=== PATIENT | female | born 1960 | race Caucasian/White ===

== ENCOUNTER 2017-06-24 10:31 | Inpatient (IN) ==
[2017-06-24] MEDS ORDERED: Adenosine 90 MG/30 ML MLS IV ONE (11:02)
[2017-06-24] MEDS ORDERED: *HR* Heparin 10,000 UNIT/10 ML VIAL ONE ×2 (14:12→14:48)
[2017-06-24] MEDS ORDERED: 0.9 % Sodium Chloride 1,000 ML ONE ×2 (14:12→14:47)
[2017-06-24] MEDS ORDERED: Verapamil 5 MG/2 ML VIAL ONE (14:12)
[2017-06-24] MEDS ORDERED: Nitroglycerin 1,000 MCG/10 ML VIAL IV ONE ×2 (14:12→14:48)
--- NOTE | 2017-06-24 14:23 | Cardiology History & Physical ---
<IsmaelJonh - Last Filed: 06/24/17 14:17> Date of Encounter: 06/24/17 Time of Encounter: 13:30 Assessment and Plan (1) NSTEMI (non-ST elevated myocardial infarction) Current Visit: Yes Status: Acute Patient presents with worsening chest pain of 3 weeks duration. Chest pain present at rest; unrelated to exertion. Daily smoker, family hx of RI, HTN and HLD. Troponin was elevated on presentation to ER; last troponin level was 2.51. EKG demonstrates the presence of inferior myocardial infarction, indeterminate age on posterior extension. Plan: -Cardiac catheterization. -Procedure was explained to patient; risks and benefits were discussed The assessment and plan as outlined above was discussed with the patient and/or family members who expressed understanding and agreement. All questions were answered. History of Present Illness Chief complaint: Chest pain HPI: Ms. Sen is a 56 year old female with a PMH of HTN and HLD who presented to the hospital as a transfer with the chief complaint of chest pain x 3 weeks. Describes her chest pain as substernal, pressure-like, 7/10 at its worst, radiating to the left side of her neck and arm and into her back. Pain unrelated to exertion; first started at rest. Denies ever having this pain before. Pain usually started at rest, and subsided within 5-10 minutes. Pain has gotten progressively worse over the last 48 hours. States that when she arrived to the emergency department, her pain had completely subsided. She does not notice pain exacerbated or relieved by anything in particular. States that she remains physically active, and the physical exertion does not affect her chest pain. Patient reports that she has been diagnosed with hypertension and hyperlipidemia, but that she dislikes taking medications. Admits to being a daily smoker. Reports a family history of heart disease, with her mother dying of heart attack in her 60s. Currently denies having any chest pain. Denies nausea, vomiting, fever, chills, diaphoresis, shortness of breath, or dizziness. EKG demonstrates the presence of inferior myocardial infarction of indeterminate age with posterior extension. Patient's vital signs are currently within normal limits. Upon initial presentation to the emergency department, patient was found to have an elevated troponin level. Last troponin drawn was 2.51. Patient will need cardiac catheterization. Past Med Surg Social Fam HX - Past Medical History Medical history: hyperlipidemia, hypertension Psychiatric history: no psych history - Social History Smoking Status: Current every day smoker Packs per day: 1.5 Smokeless Tobacco Status: No Alcohol use: none Drug use: none Medications and Allergies No Known Home Drugs 06/24/17 [History] 3 Allergy/AdvReac Type Severity Reaction Status Date / Time acetaminophen [From Percocet] AdvReac Nausea Verified 06/24/17 13:20 Oxycodone [From Percocet] AdvReac Nausea Verified 06/24/17 13:20 All Systems Review: A 10-system review of systems was performed and is negative for pertinent findings except as documented above in the HPI. - Constitutional Constitutional: snoring, no chills, no fever(s), no headache(s) - Cardiovascular Cardiovascular: no chest pain at rest, no chest pain with exertion, no diaphoresis, no dyspnea at rest, no dyspnea on exertion, no irregular heart rhythm, no radiating jaw, neck or arm pain - Neurological Neurological: no syncope Physical Examination Vital Signs, Last 4 Hours Temp Pulse Resp BP Pulse Ox 06/24/17 12:40 97.7 F 77 16 126/88 97 General: Conversant, No Apparent Distress HEENT: Atraumatic, Normocephaly, Mucus Membranes Moist Neck: No JVD, Normal carotid pulses Cardiac: Reg Rate and Rhythm, Normal S1 and S2, No Murmur Lungs: Normal Breath Sounds, No Wheeze, Rales, Rhonchi Neuro: Alert and responsive, No focal deficits noted Skin: No rashes noted on visualized skin Musculoskeletal: No Chest Wall Tenderness Extremities: No Clubbing, No Cyanosis, No Edema, Normal Pulses <Jeffry Hammonds - Last Filed: 06/24/17 14:47> Date of Encounter: 06/24/17 - Attending Attestation I examined this patient and my medical decision-making was reviewed with the Resident Physician. I agree with the documented findings, disposition and treatment plan as described except to the extent set forth below. IMP: 1. NSTEMI: Chest pain on and off since 06/09/2017, with most severe episode occurring last pm, evaluated in ER at outlying facility, found to have elevated cardiac enzemes, recommended transfer, medical tx, pt refused, reconsidered when discusses with pt this AM, agreed to transfer for C/possible. She has been pain free since admission. Long conversation with pt and family at bedside , recommend starting medical tx and urgent LHC/poss, risk and benefits discussed , pt agrees to proceed. Discussed at length need to take prescription drugs for at least a year, specifically dual antiplatelet tx, pt reports she is willing and able to follow directions with medications. She understands there is no dietary supplements or natural foods which will provide the same benefits , and stopping prescribed medications would increase her risk of repeat RI and . Will add Coreg 3.125 bid and lisinopril 2.5 mg q d, monitor heart rate and blood pressure response. 2. Tobacco abuse: discussed smoking cessation, pt will consider 3. Hyperlipidemia: known elevated cholesterol, has refused medical tx in the past but would be willing to take meds in light of new clinical situation of acute coronary syndrome. History of Present Illness HPI: Ms. Sen is a 56 year old female All Systems Review: A 10-system review of systems was performed and is negative for pertinent findings except as documented above in the HPI. Physical Examination Vital Signs, Last 4 Hours Temp Pulse Resp BP Pulse Ox 06/24/17 12:40 97.7 F 77 16 126/88 97
[2017-06-24] MEDS ORDERED: *HR* FentaNYL (PF) 100 MCG/2 ML VIAL ONE ×2 (14:49→16:09)
[2017-06-24] MEDS ORDERED: *HR* Midazolam HCl 2 MG/2 ML VIAL ONE ×4 (14:49→16:44)
--- NOTE | 2017-06-24 14:54 | Pre-Sedation Evaluation ---
Pre-sedation evaluation - Pre-sedation checklist Date of procedure: 06/24/17 Procedure: [facility] Recent Vitals: Last Vital Signs Temp 97.7 F 06/24/17 12:40 Pulse 77 06/24/17 12:40 Resp 16 06/24/17 12:40 BP 126/88 06/24/17 12:40 Pulse Ox 97 06/24/17 12:40 H&P (including ROS) documented in medical record: Yes Previous reaction to sedatives/anesthetics: No Dietary Status: NPO 6 hours prior to procedure Dentition: No loose teeth or bridges ASA Classification *see protocol: CLASS II-Mild systemic disease Plan of Care: Pt appropriate candidate for procedure/moderate/conscious sedation , Risks/benefits of procedure/sedation discussed w/ patient/family
[2017-06-24] MEDS ORDERED: Tirofiban 12.5 MG/250ML 12.5 MG/250 ML BAG ONE (15:18)
[2017-06-24] MEDS ORDERED: Ondansetron 4 MG/2 ML VIAL ONE (16:27)
[2017-06-24] MEDS ORDERED: *HR* Adenosine 6 MG/2 ML VIAL IVP ONE (16:40)
[2017-06-24] MEDS ORDERED: *HR* Morphine 2 MG/ML SYRINGE ONE ×2 (16:42→16:44)
[2017-06-24] MEDS ORDERED: *HR* Ticagrelor 90 MG TABLET ONE (16:53)
--- NOTE | 2017-06-24 17:07 | Invasive Diagnostic Lab Proc ---
Name: Cecily Sen Date of Study: 06/24/2017 Date: 1960 Ht: 67.0in Medical Record#: [id number] Age: 56 Wt: 198.42lb Gender: Female BSA: 2.02 Order #: [id number] BMI: 31.08 Physicians Procedure Physician: Vikas Corcoran MD, [facility] Referring MD: Referring MD: Staff Name Position Time In Sites, [facility] RT (R) Monitor 02:53 PM Patty Wong RT (R) Scrub 02:53 PM Nolvia Steel RN Hemodialysis Technician 02:53 PM Juan Luis Kaminski RN Monitor 03:13 PM Indications Indication Non-Stemi Procedures Performed Procedure L HRT ARTERY/VENTRICLE ANGIO IV Doppler BLD Flow 1st Vessel PRQ CARD DARRELL STENT W/ANGIO 1 VSL PRQ CARD DARRELL STENT W/ANGIO 1 VSL PRQ CARD DARRELL STENT W/ANGIO 1 VSL Pre-Procedure Checklist Informed consent is complete signed and on chart. H&P is on chart. ID band is on and ID verified with patient. Patient NPO for procedure The procedure was described for the patient and questions were answered. ECG is on chart. Rhythm: NSR Plan of Care Patient will tolerate the procedure without complications. Adequate level of comfort will be maintained. Hemodynamics will remain stable Patient will recover from procedure without complications. Respiratory function will be maintained. Cardiac rhythm will remain stable. Patient temperature will be maintained. Patient and/or family have verbalized understanding of the procedure. Patient Education Chief Complaint/Reason for Test: Cardiac Cath Developmental Category: Adult (18-64 years) Developmentally Appropriate for Age: Yes Learning Barriers: None Education Needs: Procedure Education Method: Verbal Information Taught: Cardiac Cath Educational Evaluation: Able to repeat information Intravenous Access Time IV Size Location DC'd Fluid/Drip Rate Units RN 22g 1" Patent On Arrival Rt Antecubital 0.9NaCl 25 ml/hr Nolvia Steel RN Allergies Oxycodone acetaminophen Vital Signs Time BP (mmHg) HR (bpm) O2 Sat. RR (bpm) LOC 02:54 PM / % 5 = Fully awake and oriented or at pre-proc level 03:09 PM / % 5 = Fully awake and oriented or at pre-proc level 03:24 PM / % 4 = Oriented but drowsy 03:41 PM / % 4 = Oriented but drowsy 04:11 PM / % 5 = Fully awake and oriented or at pre-proc level 04:26 PM / % 4 = Oriented but drowsy 02:53 PM 120 / 76 76 99 % 21 02:58 PM 134 / 79 75 98 % 16 03:03 PM 125 / 74 71 100 % 15 03:08 PM 125 / 79 67 100 % 16 03:13 PM 128 / 71 71 99 % 12 03:18 PM 107 / 65 81 94 % 34 03:23 PM 101 / 59 82 94 % 17 03:28 PM 111 / 62 81 95 % 22 03:33 PM 95 / 52 80 96 % 26 03:34 PM 109 / 60 79 95 % 15 03:38 PM 111 / 62 81 96 % 17 03:43 PM 109 / 65 82 97 % 18 03:48 PM 111 / 69 81 95 % 22 04:43 PM 130 / 93 77 98 % 15 04:48 PM 124 / 81 83 90 % 16 03:53 PM 115 / 66 93 100 % 16 03:58 PM 114 / 80 83 93 % 18 04:04 PM 131 / 89 85 98 % 13 04:08 PM 140 / 90 86 98 % 12 04:13 PM 138 / 89 82 97 % 18 04:18 PM 134 / 88 85 97 % 12 04:23 PM 125 / 85 83 97 % 14 04:28 PM 139 / 91 74 99 % 21 04:33 PM 152 / 95 86 99 % 15 04:38 PM 129 / 84 77 100 % 27 Procedural Medications Time Medication Dose Units Method Given By 02:54 PM Oxygen 2 L/min nasal cannula Nolvia Steel RN 02:55 PM Versed 2 mg Intravenous Nolvia Steel RN 02:55 PM Fentanyl 50 mcg Intravenous Nolvia Steel RN 03:08 PM Versed 2 mg Intravenous Nolvia Steel RN 03:08 PM Fentanyl 50 mcg Intravenous Nolvia Steel RN 03:12 PM Lidocaine 2% 0.5 ml Subcutaneous Vikas Corcoran MD, FACC 03:16 PM Heparin 4000 units Nitroglycerin 200 mcg Verapamil 2.5 mg Intraarterial Vikas Corcoran MD, FACC 03:27 PM Nitroglycerin 100 mcg Intracoronary Vikas Corcoran MD 03:30 PM Heparin 2000 units Intravenous Nolvia Steel RN 03:49 PM Adenosine 756 ml/hr Intravenous Nolvia Steel RN 04:01 PM Aggrastat Bolus: 46 ml Intravenous Nolvia Steel RN 04:02 PM Aggrastat 12.5mg/250ml 16.5 ml Intravenous Nolvia Steel RN 04:10 PM Fentanyl 25 mcg Intravenous Nolvia Steel RN 04:10 PM Heparin 1000 units Intravenous Nolvia Steel RN 04:25 PM Versed 1 mg Intravenous Nolvia Steel RN 04:25 PM Fentanyl 25 mcg Intravenous Nolvia Steel RN 04:28 PM Zofran 4 mg Intravenous Nolvia Steel RN 04:36 PM Fentanyl 50 mcg Intravenous Nolvia Steel RN 04:41 PM Morphine 4 mg Intravenous Nolvia Steel RN 04:41 PM Versed 2 mg Intravenous Nolvia Steel RN 04:43 PM Adenosine 200 mcg Intracoronary Vikas Corcoran MD, FACC 04:45 PM Benadryl 50 mg Intravenous Nolvia Steel RN 04:46 PM Brilinta 180 mg Orally Nolvia Steel RN ASA Classification: CLASS II- Mild systemic disease (i.e. well-controlled diabetes, hypertension, asthma, cigarette smoking) Scooby Score Preprocedure Postprocedure Activity 2- Moves 4 extremities sustained head lift Activity 2- Moves 4 extremities sustained head lift Circulation 2- SBP +/= 20 points of pre-anesthetic level Circulation 2- SBP +/= 20 points of pre-anesthetic level Consciousness 2- Awake and alert oriented x 3 Consciousness 2- Awake and alert oriented x 3 O2 Saturation 2- Able to maintain O2 satruation of 92% on room air O2 Saturation 2- Able to maintain O2 satruation of 92% on room air Respiratory 2- Able to deep breathe and cough well Respiratory 2- Able to deep breathe and cough well Total Score 10 Total Score 10 Contrast Agent: Isovue Diagnostic Contrast: 246 ml Total Contrast: 246 ml Fluoro Dose: 1702 mGy Activated Clotting Time Time Seconds to Clot 03:30 PM 207 Procedure Log Time Note Enter By 02:47 PM 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 tsites 02:52 PM Recorded ECG: HR=70 Condition=Condition 1 02:52 PM CathStat 02:53 PM Vitals capture started with the following parameters, Patient=Adult, Interval=5 min, Initial Dwjlmqdl=829 mmHg, Deflation Rate=5 mmHg, Cuff placed on Left Arm 02:53 PM Leandra Cason RT (R) Position: Monitor Time in: :ites 02: PM Patty Wong RT (R) Position: Scrub Time in: :: PM Nolvia Steel RN Position: Hemodialysis Technician Time in: :ites 02:53 PM Patient charges- Angio tray pack, Navilyst 3mm J, Pulse Oximetry and ACIST tubing and transducer ts: PM Physician arrived : tsites : PM Sign in performed according to hospital policy. ts:53 PM Procedure start 14: tsites : PM HR=76 bpm, WYJZ=623/76 mmhg, SpO2=99.0 %, Resp=21 B/min 02: PM Case Delayed No tsites :54 PM Hair removed from procedure site in holding area using clippers. Right wrist and right groin prepped with Chloraprep by Patty Wong (R), safety strap applied then patient was draped. Skin intact. tsites 02:54 PM Time: 14:54 Oxygen on at 2 L/min per nasal cannula by Nolvia Steel RN ites 02:54 PM Time: 14:54 Patient comfortable and pain free: Yes ts:54 PM Time: 14:54LOC: 5 = Fully awake and oriented or at pre-proc level tsites 02:54 PM Clinical Presentation: Non-STEMI tsites 02:55 PM Time: 14:55 Versed 2 mg Intravenous Given by Nolvia Steel RN tsites 02:55 PM Time: 14:55 Fentanyl 50 mcg Intravenous Given by Nolvia Steel RN tsites 02:58 PM HR=75 bpm, MFXX=923/79 mmhg, SpO2=98.0 %, Resp=16 B/min 03:03 PM HR=71 bpm, FXBB=556/74 mmhg, OxX2=790.0 %, Resp=15 B/min, Comment=nsr 03:08 PM Time: 15:08 Versed 2 mg Intravenous Given by Nolvia Steel RN tsites 03:08 PM Time: 15:08 Fentanyl 50 mcg Intravenous [facility] 03:08 PM Pressure channel 1 zeroed. 03:08 PM HR=67 bpm, DWJI=893/79 mmhg, DcA2=325.0 %, Resp=16 B/min, Comment=nsr 03:09 PM Time: 14:54 Patient comfortable and pain free: Yes tsites 03:11 PM Time out performed according to hospital policy tsites 03:12 PM Time: 15:12 0.5 ml Lidocaine 2% to right radial Subcutaneous Given by Vikas Corcoran MD, [facility] tsites 03:13 PM Juan Luis Kaminski RN Position: Monitor Time in: 15:13 tsites 03:13 PM ASA Class CLASS II- Mild systemic disease (i.e. well-controlled diabetes, hypertension, asthma, cigarette smoking) tsites 03:13 PM HR=71 bpm, UOYT=779/71 mmhg, SpO2=99.0 %, Resp=12 B/min 03:13 PM Leandra Sites monitor tsites 03:15 PM Access obtained by percutaneous puncture. 5Fr 10cm Terumo Glidesheath sheath placed in right Radial artery. [id number] tsites 03:16 PM Time: 15:16 Patient given 4,000 units Heparin, 200 mcg Nitroglycerin, and 2.5 mg Verapamil Intraarterial by Vikas Corcoran MD, [facility]. This is given to reduce risk of vessel spasm and thrombosis. tsites 03:17 PM 5Fr TIG catheter inserted over the wire [facility] tsites 03:17 PM 0.035 260cm Navilyst 3mmJ wire [id number] tsites 03:18 PM Recorded Pressure: Ao, HR=82, Condition=Condition 1 (Aorta) Ao 101/57/80 03:18 PM RCA angiography performed in multiple views. tsites 03:18 PM HR=81 bpm, SOFP=777/65 mmhg, SpO2=94.0 %, Resp=34 B/min 03:19 PM LCA angiography performed in multiple views. tsites 03:20 PM wire reinserted catheter removed tsites 03:20 PM 5Fr Pigtail catheter inserted over the wire [facility] tsites 03:20 PM Catheter selectively placed in left ventricle tsites 03:21 PM Bolus angiogram of left Ventricle complete: 10 ml/sec for a total of 30 mls tsites 03:21 PM Recorded Pressure: LV, HR=83, Condition=Condition 1 (Left Ventricle) LV 103/4/14 03:22 PM Recorded Pressure: LV, Ao, HR=86, Condition=Condition 1 (Left Ventricle) LV 104/7/16, (Aorta) Ao 102/69/85 03:22 PM wire reinserted catheter removed tsites 03:23 PM PCI Status Urgent tsites 03:23 PM PCI Indication: PCI for high risk Non-STEMI or unstable angina tsites 03:23 PM HR=82 bpm, QIYM=913/59 mmhg, SpO2=94.0 %, Resp=17 B/min, Comment=nsr 03:23 PM 6Fr CLS 3.0 Runway guide catheter was used to cannulate the PCI vessel successfully. reused? No tsites 03:24 PM 2.25 mm x 8 mm Emerge Monorail balloon across target lesion- successful. reused? No tsites 03:24 PM Time: 15:09 Patient comfortable and pain free: Yes tsites 03:24 PM Time: 15:09LOC: 5 = Fully awake and oriented or at pre-proc level tsites 03:26 PM Lesion found in Mid LAD. Pre Stenosis: 70 Pre SANDRA Flow: tsites 03: PM Lesion found in Proximal RCA. Pre Stenosis: 90 Pre SANDRA Flow: 2: Partial Flow/Perfusion (> 1 but < 3) tsites 03:26 PM Lesion found in Distal Circumflex. Pre Stenosis: 100 Pre SANDRA Flow: 1: Slow Penetration without Perfusion tsites 03:26 PM Act drawn tsites 03:27 PM Time: 15:27 Nitroglycerin 100 mcg Intracoronary Given by Vikas Corcoran MD tsites 03:28 PM HR=81 bpm, CZQB=530/62 mmhg, SpO2=95 %, Resp=22 B/min 03:30 PM At 15:30 the ACT was 207 seconds. tsites 03:30 PM Time: 15:30 Heparin 2000 units Intravenous Given by Nolvia Steel RN tsites 03:30 PM .014 Wallace 182cm guide wire across target lesion- successful. reused? No tsites 03:30 PM Inflation device was opened. tsites 03:33 PM HR=80 bpm, NIBP=95/52 mmhg, SpO2=96 %, Resp=26 B/min 03:33 PM NIBP STAT measurement started. 03:34 PM HR=79 bpm, EKVA=911/60 mmhg, SpO2=95 %, Resp=15 B/min 03:37 PM Guide wire removed intact. tsites 03:37 PM wire reinserted catheter removed tsites 03:38 PM 6Fr JL4 [place] Bright-Tip guide catheter was used to cannulate the PCI vessel successfully. reused? No tsites 03:38 PM HR=81 bpm, WCFL=737/62 mmhg, SpO2=96.0 %, Resp=17 B/min, Comment=nsr 03:41 PM Time: 15:24LOC: 4 = Oriented but drowsy tsites 03:41 PM Time: 15:24 Patient comfortable and pain free: Yes tsites 03:41 PM guide wire reinserted tsites 03:43 PM HR=82 bpm, YMIP=667/65 mmhg, SpO2=97 %, Resp=18 B/min 03:47 PM .014 PT Graphix 182cm guide wire across target lesion- successful. reused? No tsites 03:48 PM HR=81 bpm, XOMG=960/69 mmhg, SpO2=95 %, Resp=22 B/min 03:48 PM marvel wire removed tsites 03:49 PM Acist FFR catheter inserted advanced to target lesion. lad tsites 03:50 PM Time: 15:49 Adenosine 756 ml/hr administered Intravenous by Nolvia Steel RN tsites 03:51 PM Lesion found in Proximal LAD. Pre Stenosis: 45 Pre SANDRA Flow: tsites 03:53 PM FFR Measurement: 0.73 mid lad tsites 03:53 PM HR=93 bpm, TGSX=635/66 mmhg, MpW8=954 %, Resp=16 B/min 03:55 PM physician discussing open heart versus stenting tsites 03:56 PM Time: 15:41 Patient comfortable and pain free: Yes tsites 03:56 PM Time: 15:41LOC: 4 = Oriented but drowsy tsites 03:56 PM Ffr catheter removed removed intact tsites 03:58 PM 2.25 mm x 8 mm Emerge Monorail balloon across target lesion- successful. reused? No tsites 03:58 PM HR=83 bpm, DAHY=336/80 mmhg, SpO2=93 %, Resp=18 B/min 03:58 PM Balloon inflated @ 8 danilo for 10 seconds tsites 03:59 PM Balloon inflated @ 10 danilo for 12 seconds tsites 03:59 PM Balloon inflated @ 14 danilo for 19 seconds tsites 04:02 PM Time: 16:01 Aggrastat Bolus: 46 ml Intravenous Given by Nolvia Steel RN Quijano pump tsites 04:03 PM Time: 16:02 Aggrastat 12.5mg/250ml 16.5 ml Intravenous Given by Nolvia Steel RN Quijano pump tsites 04:03 PM 2.75mm x 16mm Synergy drug-eluting stent across target lesion- successful Lot #[id number] tsites 04:03 PM Stent deployed @ 12 danilo for 16 seconds tsites 04:04 PM HR=85 bpm, MCWA=100/89 mmhg, SpO2=98 %, Resp=13 B/min 04:05 PM Stent delivery system removed intact. tsites 04:06 PM 2.75mm x 12mm Synergy drug-eluting stent across target lesion- successful Lot #[id number] tsites 04:07 PM Stent deployed @ 18 danilo for 18 seconds tsites 04:08 PM HR=86 bpm, WDND=158/90 mmhg, SpO2=98 %, Resp=12 B/min 04:10 PM Time: 16:10 Fentanyl 25 mcg Intravenous Given by Nolvia Steel RN tsites 04:10 PM Time: 16:10 Heparin 1000 units Intravenous Given by Nolvia Steel RN tsites 04:11 PM Stent delivery system removed intact. tsites 04:11 PM wire repositioned to the circ tsites 04:13 PM HR=82 bpm, GGEF=108/89 mmhg, SpO2=97 %, Resp=18 B/min 04:14 PM 2.0 mm x 8 mm Mini Trek Rx balloon across target lesion- successful. reused? No tsites 04:14 PM Balloon inflated @ 14 danilo for 14 seconds tsites 04:15 PM Balloon catheter removed intact. tsites 04:17 PM 2.5mm x 20mm Synergy drug-eluting stent across target lesion- successful Lot #[id number] tsites 04:18 PM Stent deployed @ 13 danilo for 28 seconds tsites 04:18 PM HR=85 bpm, HPLE=030/88 mmhg, SpO2=97 %, Resp=12 B/min 04:19 PM Stent delivery system removed intact. tsites 04:19 PM 3.0 mm x 8mm NC Trek Rx balloon across target lesion- successful. reused? No tsites 04:21 PM Balloon inflated @ 14 danilo for 14 seconds tsites 04:22 PM Guide wire removed intact. tsites 04:23 PM wire reinserted catheter removed tsites 04:23 PM HR=83 bpm, KQTH=989/85 mmhg, SpO2=97.0 %, Resp=14 B/min 04:23 PM 6Fr JR 4 [place] Bright-Tip guide catheter was used to cannulate the PCI vessel successfully. reused? No tsites 04:25 PM Time: 16:25 Versed 1 mg Intravenous Given by Nolvia Steel RN tsites 04:25 PM Time: 16:25 Fentanyl 25 mcg Intravenous Given by Nolvia Steel RN tsites 04: PM marvel wire reinserted tsites 04: PM Time: 16:11 Patient comfortable and pain free: Yes tsites 04: PM Time: 16:11LOC: 5 = Fully awake and oriented or at pre-proc level tsites 04: PM 2.5x20 synergy stent delivery system reinserted tsites 04: PM Stent balloon reinflated @ 14 danilo for 12 seconds tsites 04:28 PM Time: 16:28 Zofran 4 mg Intravenous Given by Nolvia Steel RN tsites 04:28 PM HR=74 bpm, HKWA=376/91 mmhg, SpO2=99.0 %, Resp=21 B/min 04:30 PM 4.0mm x 24mm Synergy drug-eluting stent across target lesion- successful Lot #[id number] tsites 04:30 PM Stent deployed @ 16 danilo for 20 seconds tsites 04:30 PM Stent delivery system removed intact. tsites 04:33 PM 4.5 mm x 20mm NC Emerge balloon across target lesion- successful. reused? No tsites 04:33 PM Balloon inflated @ 12 danilo for 13 seconds tsites 04:33 PM HR=86 bpm, BRBX=747/95 mmhg, SpO2=99 %, Resp=15 B/min 04:34 PM Balloon inflated @ 18 danilo for 22 seconds tsites 04:35 PM Balloon inflated @ 14 danilo for 19 seconds tsites 04:36 PM Time: 16:36 Fentanyl 50 mcg Intravenous Given by Nolvia Steel RN tsites 04:37 PM Recorded Pressure: Ao, HR=59, Condition=Condition 1 (Aorta) Ao 127/79/100 04:38 PM HR=77 bpm, TXBV=162/84 mmhg, PfK8=689.0 %, Resp=27 B/min 04:39 PM Guide wire removed intact. tsites 04:39 PM Balloon catheter removed intact. tsites 04:41 PM Time: 16:26LOC: 4 = Oriented but drowsy tsites 04:41 PM Time: 16:26 Patient comfortable and pain free: No tsites 04:41 PM Time: 16:41 Morphine 4 mg Intravenous Given by Nolvia Steel RN tsites 04:41 PM Time: 16:41 Versed 2 mg Intravenous Given by Nolvia Steel RN tsites 04:43 PM HR=77 bpm, ZTGC=298/93 mmhg, SpO2=98 %, Resp=15 B/min 04:43 PM Time: 16:43 Adenosine 200 mcg administered Intracoronary by Vikas Corcoran MD, FACC tsites 04:45 PM Time: 16:45 Benadryl 50 mg Intravenous Given by Nolvia Steel RN tsites 04:46 PM Time: 16:46 Brilinta 180 mg Orally Given by Nolvia Steel RN tsites 04:47 PM Guide catheter removed intact. tsites 04:48 PM Procedure completed at 16:48 tsites 04:48 PM Sign out completed: Radiation Dose 1702 mGy Fluoro Time: 27.6 Isovue 370 - 500ml contrast 246 ml given by Vikas Corcoran MD, FAC. Complications: NoneCardiac Rehab Consult needed: YesConfirmed administered medications: Yes tsites 04:48 PM Isovue 370 - 500ml,1 Bottle(s) used. tsites 04:48 PM Arterial sheath pulled, Vasc Band closure device used and was Successful S/N. tsites 04:48 PM 12 ml air in Vasc Band. tsites 04:48 PM HR=83 bpm, MDQF=949/81 mmhg, SpO2=90 %, Resp=16 B/min 04:48 PM Estimated Blood Loss: less than 20cc tsites 04:48 PM Post ECG NSR tsites 04:49 PM Post Blood Pressure 124/81 tsites 04:49 PM 16:49 Post Pulses Rt Radial 1+ tsites 04:49 PM Information taught Cardiac Cath, PCI, and Vasc Band tsites 04:49 PM Education needs Procedure, Plan of Care, and Responsibilities of Patient in Care tsites 04:49 PM Learning barriers :None tsites 04:49 PM Education Methods Verbal tsites 04:49 PM Education evaluation Able to repeat information tsites 04:49 PM Site status No bleeding/hematoma - Rt Wrist as reported by Patty Wong RT (R) at 16:49 tsites 04:50 PM Plavix, Effient or Brilinta given Yes tsites 04:50 PM Delay to floor No tsites 04:50 PM Patient out of room: 16:50 tsites 04:51 PM Report given to carroll BOOKER Pt taken to 2N Room #12. 16:50 tsites 04:51 PM Family placed in consult room. tsites Complications Complication None Hemodynamics Pressures Site Systolic/A Wave Diastolic/V Wave Mean AO 101 57 80 LV 103 4 14 LV 104 7 16 AO 102 69 85 AO 127 79 100 Post Procedure Information Blood Pressure: 124/81 mmHg Rhythm: NSR Post procedural instructions were given Closure Device Time Device Success/Fail 06/24/2017 4:51:00 PM Mechanical Compression Successful Site Checks Time Location Status Staff Sheath In? Note 04:49 PM Rt Wrist No bleeding/hematoma Patty Wong RT (R) Pulses Time Site Pre-Procedure Post-Procedure Note Bilateral DP & PT 1+ Rt Radial 2+ 4:49:00 PM Rt Radial 1+ Updated by Leandra Cason RT (R) on 06/24/2017 5:01:15 PM Leandra Cason RT electronically signed on 06/24/2017 5:01:41 PM with status of Final
[2017-06-24] MEDS ORDERED: Ondansetron 4 MG/2 ML VIAL IVP PRN (17:08)
[2017-06-24] MEDS ORDERED: *HR* Morphine 2 MG/ML SYRINGE IVP PRN (17:13)
[2017-06-24] MEDS ORDERED: Nitroglycerin 0.4 MG TAB.SUBL SL PRN (17:13)
[2017-06-24] MEDS ORDERED: Tirofiban 12.5 MG/250ML 12.5 MG/250 ML BAG IVC SCH (17:15)
[2017-06-24] MEDS ORDERED: Nicotine 21 MG PATCH.TD24 TD PRN (17:17)
[2017-06-24] MEDS ORDERED: *HR* LORazepam 2 MG/ML VIAL IVP PRN (17:46)
[2017-06-24] MEDS ORDERED: *HR* LORazepam 2 MG/ML VIAL ONE (17:49)
[2017-06-24 22:13] LABS: Basophils % 0.3 %; Eosinophils # 0.1 K/mcL (0.0-0.6); Eosinophils % 0.8 %; Hematocrit 36.4 % (35.3-44.9); Hemoglobin 12.1 g/dL (11.5-15.4); Immature Granulocytes % 0.4 % (0-4); Lymphocytes # 3.4 K/mcL (0.6-4.6); Lymphocytes % 32.3 %; Mean Corpuscular HGB Conc 33.2 g/dL (31.6-35.5); Mean Corpuscular Hemoglobin 29.9 pg (28.0-33.3); Mean Corpuscular Volume 89.9 fL (83.0-100.0); Mean Platelet Volume 9.7 fL (9.4-12.4); Monocytes # 0.8 K/mcL (0.0-1.3); Monocytes % 7.4 %; Neutrophils # 6.2 K/mcL (1.6-8.9); Platelet Count 392 K/mcL (140-400); Red Blood Count 4.05 M/mcL (3.82-4.97); Red Cell Distribution Width 13.1 % (11.5-14.5); Segmented Neutrophils % 58.8 %
[2017-06-24 22:29] LABS: Alanine Aminotransferase 12 Units/L (7-52); Albumin 3.8 g/dL (3.5-5.7); Albumin/Globulin Ratio 1.4 (1.1-2.2); Alkaline Phosphatase 124 Units/L (34-104); Aspartate Amino Transferase 19 Units/L (13-39); BUN/Creatinine Ratio 18 (6-26); Bilirubin,Total 0.3 mg/dL (0.3-1.0); Blood Urea Nitrogen 13 mg/dL (6-20); Calcium 9.1 mg/dL (8.6-10.3); Carbon Dioxide 23 mEq/L (23-29); Chloride 108 mEq/L (98-107); Globulin 2.7 g/dL (2.4-3.5); Glucose 143 mg/dL (70-105); Osmolality,Calculated 287 (280-300); Sodium 137 mEq/L (136-145); Total Protein 6.5 g/dL (6.4-8.9); eGFR For African Americans > 60 (> 60); eGFR For Non-African Americans > 60 (> 60)
[2017-06-24] MEDS ORDERED: *HR* HYDROcodone/Acet 5/325 mg TABLET PO ONE (23:21)
[2017-06-25] MEDS ORDERED: *HR* HYDROcodone/Acet 5/325 mg TABLET PO PRN (06:18)
[2017-06-25] MEDS ORDERED: HEPARIN INARTERIAL ONE (08:00)
[2017-06-25] MEDS ORDERED: D5 INARTERIAL ONE (08:00)
[2017-06-25] MEDS ORDERED: WATER INARTERIAL ONE (08:00)
[2017-06-25] MEDS ORDERED: *HR* Ticagrelor 90 MG TABLET PO ONE (08:16)
[2017-06-25] MEDS ORDERED: *HR* Ticagrelor 90 MG TABLET PO SCH ×2 (09:00→21:00)
[2017-06-25] MEDS ORDERED: Isosorbide MONOnitrate (24 HR) 30 MG TAB.ER.24H PO SCH (09:00)
[2017-06-25] MEDS ORDERED: Aspirin 81 MG TAB.CHEW PO SCH (09:00)
[2017-06-25 11:38] VITALS: BP 100/60
--- NOTE | 2017-06-25 14:07 | Discharge Summary ---
<Jonh Guevara - Last Filed: 06/25/17 14:08> Date of Encounter: 06/25/17 Time of Encounter: 10:30 - Discharge Diagnosis (1) NSTEMI (non-ST elevated myocardial infarction) Priority: Primary Status: Acute Comments: Patient received cardiac catheterization; 3 drug-eluting stents were placed. Patient will be placed on aspirin and Plavix. Was counseled on smoking cessation. - Discharge Medications Prescriptions: Aspirin 81 mg PO DAILY 30 Days #30 tab.chew Atorvastatin [Lipitor] 80 mg PO HS 30 Days #30 tablet Metoprolol [Lopressor] 12.5 mg PO BID 30 Days #60 tablet Nitroglycerin [Nitrostat] 0.4 mg SL PRN PRN 30 Days #30 tab.subl PRN Reason: Pain Ticagrelor [Brilinta] 90 mg PO BID #60 tablet Home Medications: Aspirin 81 mg PO DAILY 30 Days #30 tab.chew 06/25/17 [Rx] Atorvastatin [Lipitor] 80 mg PO HS 30 Days #30 tablet 06/25/17 [Rx] Escitalopram [Lexapro] 10 mg PO DAILY 06/25/17 [History] Lisinopril 2.5 mg PO DAILY 06/25/17 [History] Metoprolol [Lopressor] 12.5 mg PO BID 30 Days #60 tablet 06/25/17 [Rx] Nitroglycerin [Nitrostat] 0.4 mg SL PRN PRN 30 Days #30 tab.subl 06/25/17 [Rx] Ticagrelor [Brilinta] 90 mg PO BID #60 tablet 06/25/17 [Rx] Allergies/Adverse Reactions: 3 Allergy/AdvReac Type Severity Reaction Status Date / Time acetaminophen [From Percocet] AdvReac Nausea Verified 06/24/17 13:20 Oxycodone [From Percocet] AdvReac Nausea Verified 06/24/17 13:20 Procedures/tests Complete & Pending: Procedures Performed prior 72 hours Category Date Time Status CL Cardiac Catheterization [CL] Routine Mushroom Farmer 06/24/17 13:50 Completed ECG 12 lead ECG [ECG] Routine Y 06/24/17 17:08 Ordered Date of admission: 06/24/17 12:15 Primary care physician: Holly Cooper CNP Discharging clinician: Jonh Guevara Anticipated date of discharge: 06/25/17 - Patient Status Disposition: Home, Self-Care Condition: Fair Overall status at discharge: patient is progressing back to baseline - Discharge Instructions Instructions: Metoprolol (By mouth), Aspirin (By mouth), Atorvastatin (By mouth ), Ticagrelor (By mouth), Myocardial Infarction (DC), Heart Healthy Diet (DC) Follow Up With: Vikas Corcoran MD [Partnered Physician] - (office will call with hospital follow up appointment, ) Holly Cooper CNP [Primary Care Provider] - 07/10/17 10:00 am Additional Instructions: RISK FACTORS: STOP SMOKING: If you smoke, STOP. Smoking or tobacco use significantly increases your risk of heart disease because nicotine causes the arteries to narrow or constrict. It also causes fats to stick to the artery. Your chances of having a heart attack are greatly increased if you continue to smoke. For more information, call the education line for smoking cessation 6-290-WZEJUMU EAT A LOW FAT/CHOLESTEROL/SODIUM DIET: This diet may help reduce your chances of having a heart attack. LIFTING: With affected extremity: Avoid bending, pushing off and lifting more than 2 pounds for 24 hours The following 48 hours, avoid lifting anything more than 5 pounds Avoid strenuous activity or repetitive motions ACTIVITY: You may walk or climb stairs as tolerated You can resume sexual activity as tolerated In general, you are encouraged to engage in a minimum of 30 minutes or more of moderate intensity physical activity, such as brisk walking, daily or at least 3 -4 times weekly BATHING Do not submerge the site into water (bath tub, hot tub, swimming pool, dishes) for 1 week. This can be a source for infection into the blood stream. You may shower after 24 hours SITE CARE: After 24 hours, you may remove the dressing and leave the site open to air. Keep the site clean and dry. Clean gently and pat dry. You can expect bruising and tenderness that gradually resolve within a week or two. Return to work as instructed per your physician Resume driving as instructed per physician Keep all scheduled follow up appointments Resume medications as instructed IMPORTANT: If prescribed a Platelet Aggregation Inhibitor such as, Plavix, Brilinta or Effient: Duration of therapy is minimum one year These medications are often used in combination with Aspirin in prevention of future heart attacks Never discontinue unless consult with your Health Underwriter STROKE (CVA) Risk factors for a stroke are: Age, cigarette smoking, diabetes, excessive alcohol consumption, family history, high blood pressure, overweight, physical inactivity, prior stroke, heart attack, diagnosis of carotid artery stenosis or other artery disease. Warning signs: Sudden numbness or weakness of the face, arm or leg; especially on one side of the body, sudden confusion, trouble speaking or understanding, sudden trouble seeing in one or both eyes, sudden trouble walking, dizziness, loss of balance or coordination, sudden severe headache with no cause. Call 911 or go to the Emergency Room. CONGESTIVE HEART FAILURE: If you have been diagnosed with Congestive Heart Failure (CHF) and your symptoms return, make an appointment with your physician Weigh yourself daily. Notify your physician if you have a weight gain of two or more pounds in one day or five or more pounds in one week. If you experience any difficulty breathing, please call 911 BLEEDING: Although the risk of bleeding is minimal, it can happen. If you have any bleeding from the site, apply firm pressure above the puncture site for 10-15 minutes. If the bleeding does not stop, continue manual pressure and call 911 Contact [facility] ( ) if: You develop a fever greater than 101 degrees Fahrenheit Your site becomes reddened or has any drainage You have an increase in pain or burning at the site or if a large knot forms at the site. If you experience chest pain, shortness of breath, dizziness, or extreme tiredness, stop the activity and rest. Please notify [facility] office if you experience any of these symptoms and they are not relieved by rest please call 911! - Diet and Activity Activity: increase activity as tolerated Diet: low fat, low cholesterol - Hospital Course Hospital course: Ms. Sen is a 56 year old female with a PMH of HTN and HLD who presented to the hospital as a transfer with the chief complaint of chest pain x 3 weeks. Described her chest pain as substernal, pressure-like, 7/10 at its worst, radiating to the left side of her neck and arm and into her back. Pain unrelated to exertion; first started at rest. Denies ever having this pain before. Pain usually started at rest, and subsided within 5-10 minutes. Pain has gotten progressively worse over the last 48 hours. States that when she arrived to the ED, her pain had completely subsided. She does not notice pain exacerbated or relieved by anything in particular. States that she remains physically active, and the physical exertion does not affect her chest pain. Patient reports that she has been diagnosed with hypertension and hyperlipidemia , but that she dislikes taking medications. Admits to being a daily smoker. Reports a family history of heart disease, with her mother dying of heart attack in her 60s. Denied having any chest pain. Denied nausea, vomiting, fever, chills, diaphoresis, shortness of breath, or dizziness. EKG demonstrated the presence of inferior myocardial infarction of indeterminate age with posterior extension. Upon initial presentation to the emergency department, patient was found to have an elevated troponin level at 2.51. Patient was taken for cardiac catheterization. Patient received a total of 3 drug-eluting stents. Severe three-vessel disease was present. Stents were placed in the mid LAD, distal LCx, and proximal RCA. Patient was seen and examined at date of discharge. She states that her chest pain has resolved. Reported having some pain in her right wrist at the insertion site after her procedure. This pain has since subsided. Patient has been counseled on the necessity of taking her medications daily. Patient will be sent home on aspirin and Plavix. She has also been counseled on smoking cessation. Physical exam is unremarkable on date of discharge. Condition is stable. Vital signs are within normal limits. She has no complaint at this time. - Time Spent with Patient Total time spent providing and/or coordinating discharge services: Physical Examination Vital Signs, Last 4 Hours Temp Pulse Resp BP Pulse Ox 06/25/17 11:33 98.3 F 74 16 100/60 96 General: Conversant, No Apparent Distress HEENT: Atraumatic, Normocephaly, Mucus Membranes Moist Neck: No JVD, Normal carotid pulses Cardiac: Reg Rate and Rhythm, Normal S1 and S2, No Murmur Lungs: Normal Breath Sounds, No Wheeze, Rales, Rhonchi Neuro: Alert and responsive, No focal deficits noted Skin: No rashes noted on visualized skin Musculoskeletal: No Chest Wall Tenderness Extremities: No Clubbing, No Cyanosis, No Edema, Normal Pulses <Jeffry Hammonds - Last Filed: 06/25/17 17:08> Date of Encounter: 06/25/17 Procedures/tests Complete & Pending: Procedures Performed prior 72 hours Category Date Time Status CL Cardiac Catheterization [CL] Routine Mushroom Farmer 06/24/17 13:50 Completed ECG 12 lead ECG [ECG] Routine Y 06/24/17 17:08 Completed ECG 12 lead ECG [ECG] Routine Y 06/24/17 18:01 Completed Date of admission: 06/24/17 12:15 Primary care physician: Holly Cooper CNP - Hospital Course Hospital course: Ms. Sen is a 56 year old female - Time Spent with Patient Total time spent providing and/or coordinating discharge services: - Attending Attestation I examined this patient and my medical decision-making was reviewed with the Resident Physician. I agree with the documented findings, disposition and treatment plan as described except to the extent set forth below. IMP: 1. NSTEMI: underwent emergent three vessel revascualrization, with excellent results, chest pain has resolved, tolerating optimal medical tx well, will discharge to home, follow in office in two to three weeks. Long conversation with pt and family about compliance with medications and high risk of acute stent thrombosis if stops dual antiplatelet tx, pt confirms she understands and accepts these risks if she self discontinues these medications.
--- NOTE | 2017-06-25 19:52 | Electrocardiograph Report ---
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
--- NOTE | 2017-06-26 19:01 | Electrocardiograph Report ---
[address] [place], [place] [address] Test Date: 2017-06-24 Pat Name: Cecily Sen Department: 110 Room: 2N12 Gender: F Home Advisor: CARIN : 1960 Requested By: Jeffry Hammonds Order Number: [id number] Reading MD: Vikas Corcoran MD Measurements Intervals [place] Rate: 66 P: 46 [place]: 152 QRS: -12 QRSD: 88 T: 82 QT: 436 QTc: 449 Interpretive Statements SINUS RHYTHM WITH SINUS ARRHYTHMIA INFERIOR MYOCARDIAL INFARCTION, OF INDETERMINATE AGE WITH POSTERIOR EXTENSION Electronically Signed On 06-26-2017 18:59:58 EST by Vikas Corcoran MD
== END 2017-06-25 15:43 | disposition home or self-care (01) | DRG 174 ==
LOC: 2NNU 12:15
PROVIDERS: ADMIT Internal Medicine Cardiovascular Disease; ATTEND Internal Medicine Cardiovascular Disease